=== PATIENT | female | born 1965 | race Asian ===

== ENCOUNTER → 2018-08-20 | Outpatient (CLI) | payer OTHER | END | disposition home or self-care (01) | LOC: LAB 08:00 | DX: N85.8 Other specified noninflammatory disorders of uterus (principal) | CPT/HCPCS: 84702; 86850; 86900; 86901 ==

== ENCOUNTER 2018-08-29 10:07 | Day surgery (SDC) | payer OTHER ==
[~2018-08-29 10:07] MED LIST: SEVOFLURANE 15 MIN
[2018-08-29] MEDS ORDERED: PROPOFOL 20 ML (15:34)
[2018-08-29] MEDS ORDERED: ONDANSETRON 4 MG INJ (15:34)
[2018-08-29] MEDS ORDERED: CEFAZOLIN 1 GM INJ (15:34)
[2018-08-29] MEDS ORDERED: MEPERIDINE 100 MG INJ (15:34)
[2018-08-29] MEDS ORDERED: METOCLOPRAMIDE 10 MG INJ (15:34)
[2018-08-29] MEDS ORDERED: LIDOCAINE 2% (SDV) 5 ML INJ (15:34)
[2018-08-29] MEDS ORDERED: LABETALOL HCL 20MG INJ IV (16:30)
[2018-08-29] MEDS ORDERED: FENTAnyl 50 MCG/ML VIAL IV ×3 (16:30)
[2018-08-29] MEDS ORDERED: OXYCODONE/ACETAMINOPHEN (5/325) TAB PO ×2 (16:30)
[2018-08-29] MEDS ORDERED: MEPERIDINE 25 MG INJ IV (16:30)
[2018-08-29] MEDS ORDERED: EPHEDrine SULFATE 50 MG/5 ML SYG IV (16:30)
[2018-08-29] MEDS ORDERED: ACETAMINOPHEN 325 MG TAB PO (16:30)
[2018-08-29] MEDS ORDERED: hydrALAzine 20 MG INJ IV (16:30)
[2018-08-29] MEDS ORDERED: METOCLOPRAMIDE 10 MG INJ IV (16:30)
[2018-08-29] MEDS ORDERED: DIPHENHYDRAMINE 50 MG INJ IV (16:30)
[2018-08-29] MEDS ORDERED: MIDAZOLAM 1 MG/ML 2 ML INJ IV (16:30)
[2018-08-29] MEDS ORDERED: ONDANSETRON 4 MG INJ IV (16:30)
== END 2018-08-29 17:20 | disposition home or self-care (01) ==
LOC: SDS 10:07
DX: D25.0 Submucous leiomyoma of uterus (principal); N92.0 Excessive and frequent menstruation with regular cycle
CPT/HCPCS: 58558; 84703; 86900; 86901; 88305